=== PATIENT | female | born 1970 | race Two or more races ===

== ENCOUNTER 2024-01-05 08:53 | Emergency (ER) | payer BC, OTHER ==
[~2024-01-05] VITALS: Ht 165.1 cm; Wt 76.3 kg
[2024-01-05 09:12] VITALS: BP 155/100; PULSE 81; RESP 16; O2SAT 99
[2024-01-05] MEDS: HYDROcodone-ACET 10/325MG TAB PO ONE (09:22)
[2024-01-05] MEDS: NEOMYCIN-BACITRACIN-POLYM UNITDOSE PKG TOP OINT TOP ONE (09:23)
[2024-01-05] MEDS: DESITIN (ZINC OXIDE 40%) OINT 28G TUBE TOP ONE (09:24)
[2024-01-05] MEDS: ZINC SULFATE 220mg CAP or TAB PO ONE (09:30)
[2024-01-05] MEDS ORDERED: NAPR-746 PO (09:30)
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
[2024-01-05] MEDS ORDERED: CEPH500C PO (09:50)
== END 2024-01-05 09:48 | disposition home or self-care (01) ==
LOC: ER 08:53
DX: T23.262A Burn of second degree of back of left hand, initial encounter (principal); Z79.899 Other long term (current) drug therapy; X08.8XXA Exposure to other specified smoke, fire and flames, initial encounter; Y93.89 Activity, other specified; Y92.89 Other specified places as the place of occurrence of the external cause; Y99.8 Other external cause status
CPT/HCPCS: 16020

== ENCOUNTER 2024-12-21 09:38 | Inpatient (IN) | payer BC ==
[~2024-12-21] VITALS: Ht 165.1 cm; Wt 74.5 kg
[~2024-12-21 09:38] MED LIST: CEPH500C PO; NAPR-746 PO
[2024-12-21] MEDS: LIDOCAINE 1% HCL (LOCAL ANESTH.) INJ 20ML MDV IJ ONE (10:35)
[2024-12-21 11:20] LABS: Hematocrit 42.5 % (36.0-46.0); Hemoglobin 14.4 g/dL (12.2-16.2); Mean Corpuscular Hemoglobin 29.7 pg (28.0-32.0); Mean Corpuscular Volume 87.5 fL (80.0-100.0); Nucleated Red Blood Cells % 0.1 %
[2024-12-21 11:30] LABS: Chloride 104 mmol/L (98-107); Potassium 3.9 mmol/L (3.5-5.1); Sodium 140 mmol/L (136-145)
[2024-12-21 11:31] LABS: Anion Gap 12 (5-15); Carbon Dioxide 24 mmol/L (20-31)
[2024-12-21 11:32] LABS: Calcium 9.5 mg/dL (8.7-10.4)
[2024-12-21 11:36] LABS: BUN/Creatinine Ratio 7.4 (10.0-20.0)
[2024-12-21 11:42] LABS: Blood Urea Nitrogen 5 mg/dL (9-23); Glucose 384 mg/dL (74-106)
[2024-12-21] MEDS: InsuLIN REG 1unit/0.01ml Soln (100units/ml) IV ONE (13:09)
[2024-12-21] MEDS: KETOROLAC TROMETH 30 MG/ML 1ML VIAL IM ONE (13:36)
[2024-12-21] MEDS: SODIUM CHLORIDE 0.9% 1,000 ML IV ONE (13:41)
[2024-12-21] MEDS: CLINDAMYCIN 900MG IV 50 ML IV ONE (13:56)
[2024-12-21] MEDS ORDERED: DEXTROSE (50%) 50ML SYRG IV PRN (15:30)
[2024-12-21] MEDS ORDERED: ONDANSETRON HCL 4 MG/2 ML VIAL IV PRN (15:30)
[2024-12-21 16:45] VITALS: PULSE 93; RESP 18; O2SAT 96
[2024-12-21 17:00] VITALS: BP 137/82; PULSE 93; RESP 18; TEMP 98.4; O2SAT 96
[2024-12-21] MEDS ORDERED: SEMA4INJ SC (17:07)
[2024-12-21] MEDS ORDERED: INSLISPI SC (17:07)
[2024-12-21] MEDS ORDERED: METF-370 PO (17:07)
[2024-12-21] MEDS ORDERED: GLIP5TAB21 PO (17:07)
[2024-12-21] MEDS ORDERED: INSLANTI SC (17:07)
[2024-12-21 17:08] VITALS: BP 137/62; PULSE 94; RESP 16; TEMP 98.4; O2SAT 98
--- NOTE | 2024-12-21 17:29 | ECG ---
[facility] Test Date: 2024-12-21 Test Time: 09:47:48 Pat Name: LOGAN ANNE Department: Room: 0240 B Gender: F Research Quality Assurance Analyst: DEANN : 1970 Requested By: EMERGENCY EMERGENCY Order Number: [id number] Reading MD: Jayden Neely Measurements Intervals [place] Rate: 109 P: 62 MS: 160 QRS: -17 QRSD: 95 T: 46 QT: 350 QTc: 472 Interpretive Statements Sinus tachycardia Ventricular premature complex Aberrant complex Probable left atrial enlargement Borderline left axis deviation Low voltage, extremity leads Baseline wander in lead(s) II,aVR Electronically Signed On 12-26-2024 13:26:35 PST by Jayden Neely Please click the below link to view image of tracing.
[2024-12-21] MEDS: ACCU-CHEK COMFORT CURVE STRIP VI SCH (17:30)
[2024-12-21] MEDS: MORPHINE SULFATE INJ 2 MG/ml SYRG IV PRN (17:31)
[2024-12-21] MEDS: InsuLIN REG 1unit/0.01ml Soln (100units/ml) SC SCH (17:35)
[2024-12-21 20:00] VITALS: PULSE 94; RESP 18; O2SAT 98
[2024-12-21 20:56] VITALS: BP 127/71; PULSE 94; RESP 18; TEMP 98.8; O2SAT 98
[2024-12-21] MEDS: HYDROcodone-ACET 5/325MG TAB PO PRN (22:19)
[2024-12-21] MEDS: CLINDAMYCIN 600MG IV 50 ML IV SCH (22:19)
[2024-12-22] VITALS (7 sets, daily range): BP systolic 117–159; BP diastolic 72–83; PULSE 71–98; RESP 16–98; TEMP 98.4–99.5; O2SAT 96–100
[2024-12-22 05:59] LABS: Hematocrit 36.2 % (36.0-46.0); Hemoglobin 12.5 g/dL (12.2-16.2); Mean Corpuscular Hemoglobin 30.1 pg (28.0-32.0); Mean Corpuscular Volume 87.6 fL (80.0-100.0); Nucleated Red Blood Cells % 0.0 %
[2024-12-22 06:21] LABS: Alanine Aminotransferase 21 U/L (7-40); Albumin 4.0 g/dL (3.2-4.8); Anion Gap 9 (5-15); Bilirubin, Total 0.5 mg/dL (0.2-1.0); Calcium 8.7 mg/dL (8.7-10.4); Carbon Dioxide 24 mmol/L (20-31); Chloride 105 mmol/L (98-107); Potassium 3.5 mmol/L (3.5-5.1); Sodium 138 mmol/L (136-145); Total Protein 6.5 g/dL (5.7-8.2)
[2024-12-22 06:25] LABS: Alkaline Phosphatase 116 U/L (46-116); BUN/Creatinine Ratio 10.9 (10.0-20.0); Blood Urea Nitrogen < 5 mg/dL (9-23); Glucose 232 mg/dL (74-106)
[2024-12-22] MEDS: ACETAMINOPHEN 325 MG TAB PO PRN (09:35)
--- NOTE | 2024-12-22 11:07 | ED.PDOC ---
History of Present Illness(SKN HPI Comments A 54 YEAR OLD FEMALE PRESENTS TO THE ED WITH COMPLAINT OF LUMP OF RIGHT VAGINAL LABIA. PATIENT STATES SHE HAS BEEN A PAINFUL LUMP ON HER RIGHT VAGINAL LABIA FOR THE PAST 6 DAYS WITH WORSENING PAIN AND SWELLING THAT STARTED YESTERDAY. PATIENT NOTES SHE WAS SENT TO THIS ED BY URGENT CARE DUE TO HER BLOOD SUGAR BEING IN THE 400S. PATIENT DENIES FEVER, CHILLS, SHORTNESS OF BREATH, CHEST PAIN, ABDOMINAL PAIN, NAUSEA, VOMITING, HEADACHE, OR OTHER COMPLAINTS. NO OTHER SYMPTOMS OR MODIFYING FACTORS AT THIS TIME. PATIENT IS ALERT, ORIENTED X 4, AND HAS STEADY GAIT. Chief Complaint: Abscess Time Seen by MD: 09:47 History of Present Illness: Nurses Notes, Medications, Allergies Allergies: Coded Allergies: NO KNOWN ALLERGIES (Unverified , 01/05/24) Home Meds Active Scripts Cephalexin Monohydrate (Cephalexin) 500 Mg Cap, 1 CAP PO QID for 7 Days, #28 CAP 0 Refills Prov:REX PECK NP 01/05/24 Naproxen (Naproxen) 500 Mg Tab, 500 MG PO BIDPC for 14 Days, #28 TAB 0 Refills Prov:REX PECK PEDIATRIC DERMATOLOGIST 01/05/24 Information Source: Patient Mode of Arrival: Ambulatory Severity: Moderate Timing: Days Duration: Since onset, Days Prehospital treatment: None Location: Other (RIGHT VAGINAL LABIA) Mechanism: Spontaneous Onset Occurence: Indoors Object: None Condition of Object: None Retained Foreign Body: No Wound Type: Abscess Immunization Status of Animal: NA Tetanus: Unknown History of: Diabetes Associated Signs and Symptoms: Redness, Swelling, Pain Past Medical History PAST MEDICAL HISTORY: DM, High Lipids Surgical History: Denies all surgeries FLAT BREAKDOWN PROCESSOR History: No Pertinent FLAT BREAKDOWN PROCESSOR History Family History Family History: Reviewed,noncontributory to illness Social History Smoker: Non-Smoker Alcohol: Denies ETOH Use Drugs: Denies Drug Use Lives In: Home Constitutional: reports: others (ANXIOUS ); denies: chills, diaphoresis, fatigue, fever, malaise, sweats, weakness EENTM: denies: blurred vision, double vision, ear bleeding, ear discharge, ear drainage, ear pain, ear ringing, eye pain, eye redness, hearing loss, mouth pain, mouth swelling, nasal discharge, nose bleeding, nose congestion, nose pain, photophobia, tearing, throat pain, throat swelling, voice changes, others Respiratory: denies: cough, hemoptysis, orthopnea, SOB at rest, shortness of breath, SOB with excertion, stridor, wheezing, others Cardiovascular: denies: chest pain, dizzy spells, diaphoresis, Dyspnea on exertion, edema, irregular heart beat, left arm pain, lightheadedness, palpitations, PND, syncope, others Gastrointestinal: denies: abdomen distended, abdominal pain, blood streaked bowels, constipated, diarrhea, dysphagia, difficulty swallowing, hematemesis, melena, nausea, poor appetite, poor fluid intake, rectal bleeding, rectal pain, vomiting, others Genitourinary: denies: abnormal vagina bleeding, burning, dyspareunia, dysuria, flank pain, frequency, hematuria, incontinence, pain, , vagina discharge, urgency, others Neurological: denies: dizziness, fainting, headache, left sided numbness, left sided weakness, numbness, paresthesia, pre-existing deficit, right sided numbness, right sided weakness, seizure, speech problems, tingling, tremors, weakness, others Musculoskeletal: denies: back pain, gout, joint pain, joint swelling, muscle pain, muscle stiffness, neck pain, others Integumetry: reports: lumps (LUMP OF RIGHT VAGINAL LABIA), wounds; denies: bruises, change in color, change in hair/nails, dryness, laceration, lesions, rash, others Allergic/Immunocompromised: denies: Difficulty Healing, Frequent Infections, Hives, Itching, others Hematologic/Lymphatic: denies: anemia, blood clots, easy bleeding, easy bruisin g, swollen glands, others Endocrine: denies: excessive hunger, excessive sweating, excessive thirst, excessive urination, flushing, intolerance to cold, intolerance to heat, unexplained weight gain, unexplained weight loss, others Psychiatric: denies: anxiety, bipolar disorder, depression, hopeless, panic disorder, schizophrenia, sleepless, suicidal, others All Other Systems: Reviewed and Negative Physical Exam General Appearance: No Apparent Distress, Normal HEENT: Normal ENT Inspection, PERRL/EOMI, Pharynx Normal, TMs Normal Neck: Full Range of Motion, Non-Tender, Normal, Normal Inspection Respiratory: Chest Non-Tender, Lungs Clear, No Accessory Muscle Use, No Respiratory Distress, Normal Breath Sounds Cardiovascular: No Edema, No JVD, No Murmur, No Gallop, Normal Peripheral Pulses, Regular Rate/Rhythm Breast Exam: Deferred Gastrointestinal: No Organomegaly, Non Tender, No Pulsatile Mass, Normal Bowel Sounds, Soft Genitalia: Other (A RED BUMP WITH REDNESS AND SWELLING ON RIGHT VAGINAL MAJOR LABIA, +ABSCESS. ) Pelvic: Normal External Exam Rectal: Deferred Extremities: No calf tenderness, Normal capillary refill, Normal inspection, Normal range of motion, Non-tender, No pedal edema Musculoskeletal : Apperance: Normal Neurologic: Alert, funeral arrangement director II-XII nml as Tested, No Motor Deficits, Normal Affect, Normal Mood, No Sensory Deficits Cerebellar Function: Normal Reflexes: Normal Skin: Dry, Normal Color, Warm, Wounds (A BUMP WITH LOCALIZED ERYTHEMA, SWELLING AND FLUCTUANCE ON RIGHT VAGINAMAJOR LABIA, MILD PUS DRAINAGE. ) Peripheral Pulses: 2+ carotid (R), 2+ carotid (L) Lymphatic: No Adenopathy Was a procedure done? Was a procedure done?: Yes Sedation Sedation?: No Incision and Drainage Incision and Drainage: Abscess Location RIGHT VAGINAL LABIA Anesthetic: Lidocaine Preparation: Betadine, Saline Incision and Wound: Pus, Blood, Amount, Irrigated, Packed Informed consent obtained: No Risks/benefits/alt described: Yes Differential Diagnosis (INTG) Differential Diagnosis: N/A Differential Diagnosis: Abscess, Cellulitis, N/A Differential Diagnosis: N/A Abscess: Abscess, Cellulitis, Erysipelas Differential Diagnosis: N/A X-Ray, Labs, Meds, VS Vital Signs Date Time Temp Pulse Resp B/P (MAP) Pulse Ox O2 Delivery O2 Flow Rate FiO2 12/21/24 12:57 98.7 118 19 192/94 (126) 100 98.7 12/21/24 12:57 118 19 100 Room Air 12/21/24 09:47 109 12/21/24 09:40 97.0 122 16 136/85 98 97.0 Lab Test 12/21/24 12:56 12/21/24 10:36 Range/Units POC Glucose 319 H 70-106 mg/dl White Blood Count 9.0 4.4-10.8 10^3/uL Red Blood Count 4.86 4.0-5.20 10^6/uL Hemoglobin 14.4 12.2-16.2 g/dL Hematocrit 42.5 36.0-46.0 % Mean Corpuscular Volume 87.5 80.0-100.0 fL Mean Corpuscular Hemoglobin 29.7 28.0-32.0 pg Mean Corpuscular Hemoglobin Concent 33.9 32.0-36.0 g/dL Red Cell Distribution Width 12.6 11.8-14.3 % Platelet Count 251 140-450 10^3/uL Mean Platelet Volume 7.8 6.9-10.8 fL Neutrophils (%) (Auto) 82.7 H 37.0-80.0 % Lymphocytes (%) (Auto) 9.9 L 10.0-50.0 % Monocytes (%) (Auto) 5.4 0.0-12.0 % Eosinophils (%) (Auto) 1.6 0.0-7.0 % Basophils (%) (Auto) 0.4 0.0-2.0 % Neutrophils # (Auto) 7.4 1.6-8.6 10 ^3/uL Lymphocytes # (Auto) 0.9 0.4-5.4 10 ^3/uL Monocytes # (Auto) 0.5 0-1.3 10 ^3/uL Eosinophils # (Auto) 0.1 0-0.8 10 ^3/uL Basophils # (Auto) 0 0-0.2 10 ^3/uL Nucleated Red Blood Cells 0.1 % Sodium Level 140 136-145 mmol/L Potassium Level 3.9 3.5-5.1 mmol/L Chloride Level 104 98-107 mmol/L Carbon Dioxide Level 24 20-31 mmol/L Anion Gap 12 5-15 Blood Urea Nitrogen 5 L 9-23 mg/dL Creatinine 0.68 0.550-1.02 mg/dL Glomerular Filtration Rate Calc 102 >90 mL/min BUN/Creatinine Ratio 7.4 L 10.0-20.0 Serum Glucose 384 H 74-106 mg/dL Lactic Acid Level 1.2 0.4-2.0 mmol/L Calcium Level 9.5 8.7-10.4 mg/dL Current Medications Medications (Trade) Dose Ordered Sig/Balwinder Route Start Time Stop Time Status Last Admin Ceftriaxone Sodium 50 ml @ 100 mls/hr ONCE ONCE IV 12/21/24 10:30 12/21/24 10:59 DC 12/21/24 12:58 Clindamycin Phosphate 50 ml @ 50 mls/hr ONCE ONCE IV 12/21/24 10:30 12/21/24 11:29 DC 12/21/24 13:56 Sodium Chloride 1,000 ml @ 1,000 mls/hr Q1H ONCE IV 12/21/24 10:30 12/21/24 11:29 DC 12/21/24 13:41 Insulin Human Regular (InsuLIN R) 8 units ONCE ONCE IV 12/21/24 12:00 12/21/24 12:01 DC 12/21/24 13:09 Ketorolac Tromethamine (Toradol Injection) 30 mg ONCE ONCE IM 12/21/24 13:45 12/21/24 13:46 DC 12/21/24 13:36 X-Ray, Labs, Meds, VS Comment EXTERNAL MEDICAL RECORDS REVIEWED: [NONE] INDEPENDENT HISTORIANS: [NONE] SOCIAL DETERMINANTS OF HEALTH: [NONE] LABS ORDERED: CBC, BMP,, LACTIC ACID W/REFLEX, BLOOD CULTURE, WOUND CULTURE REVIEWED AND INTERPRETED RESULTS: IMAGING ORDERED: NONE TREATMENTS ORDERED: NS 1 L IV, CLINDAMYCIN 900 MG IV, ROCEPHIN 1 G IV AND TORADOL 30MG IVP PROCEDURES PERFORMED: INCISION AND DRAINAGE, SEE PROCEDURE SECTION. CRITICAL CARE TIME: NONE I HAVE DISCUSSED THE PATIENT WITH THE ATTENDING PHYSICIAN DR. GARCIA AND HE AGREES WITH THE PATIENT'S PLAN OF CARE. UPON MY PHYSICAL EXAMINATION, THE PATIENT HAD AN ABSCESS OF HER RIGHT VAGINAL LABIA. AN INCISION AND DRAINAGE WAS PERFORMED, HOWEVER DUE TO THE SEVERITY OF THE INFECTION AND THE FACT THAT THE PATIENT'S BLOOD SUGAR IS HIGH, I HAVE DETERMINED THE PATIENT NEEDS TO BE ADMITTED FOR FURTHER TREATMENT AND EVALUA TION. THE ON-CALL HOSPITALIST WILL BE CONTACTED FOR ADMISSION OF THIS PATIENT. Time of 1ST Reevaluation: 14:00 Reevaluation 1ST: Unchanged Patient Education/Counseling: Diagnosis, Treatment Family Education/Counseling: Diagnosis, Treatment SEPSIS Sepsis Screen Date sepsis recognized/suspect: Dec 21, 2024 Time Sepsis recognized/suspect: 941 Recent Procedure: No On Antibiotic Therapy: No Respiratory Rate >20: No Heart Rate >90: No Temp<36 C (96.8 F) or >38.3 C: No SBP <90 or MAP <65 mmHG: No New Acute Mental Status Change: No Is the patient on CPAP, BIPAP,: No Physician Orders Electrocardigram (12/21/24 09:43) Wound Culture W/ Gs (12/21/24 10:26) Blood Culture (12/21/24 10:26) 4X4 (12/21/24 10:26) Disposable Chux (12/21/24 10:26) Lac Tray (12/21/24 10:26) Heplock Iv (12/21/24 ) Consistent Carb(Ccho)Diabetes (12/21/24 Lunch) Vital Signs Date Time Temp Pulse Resp B/P (MAP) Pulse Ox O2 Delivery O2 Flow Rate FiO2 12/21/24 12:57 98.7 118 19 192/94 (126) 100 98.7 12/21/24 12:57 118 19 100 Room Air 12/21/24 09:47 109 12/21/24 09:40 97.0 122 16 136/85 98 97.0 Laboratory Tests Test 12/21/24 10:36 Lactic Acid Level 1.2 mmol/L (0.4-2.0) White Blood Count 9.0 10^3/uL (4.4-10.8) Medications Medications Dose Ordered Sig/Balwinder Route Start Time Stop Time Status Last Admin Dose Admin Ceftriaxone Sodium 50 ml @ 100 mls/hr ONCE ONCE IV 12/21/24 10:30 12/21/24 10:59 DC 12/21/24 12:58 Clindamycin Phosphate 50 ml @ 50 mls/hr ONCE ONCE IV 12/21/24 10:30 12/21/24 11:29 DC 12/21/24 13:56 Insulin Human Regular 8 units ONCE ONCE IV 12/21/24 12:00 12/21/24 12:01 DC 12/21/24 13:09 Ketorolac Tromethamine 30 mg ONCE ONCE IM 12/21/24 13:45 12/21/24 13:46 DC 12/21/24 13:36 Sodium Chloride 1,000 ml @ 1,000 mls/hr Q1H ONCE IV 12/21/24 10:30 12/21/24 11:29 DC 12/21/24 13:41 Departure 1 Departure Time of Disposition: 14:00 Impression: Primary Impression: Abscess of right genital labia Additional Impression: Uncontrolled diabetes mellitus Qualified Codes: E11.65 - Type 2 diabetes mellitus with hyperglycemia Disposition: ADMITTED INPATIENT Condition: Serious Critical Care Note Critical Care Time?: No Stability Stability form required: Yes Unstable for transfer: Requires medication, ED Physician Assesment, Possible rapid decline I personally scribed for SANJIV VAZQUEZ ([email or web address]) on 12/21/24 at 10:31. Electronically submitted by Naveen Fishman ([email or web address]). I personally scribed for SANJIV VAZQUEZ ([email or web address]) on 12/21/24 at 11:01. Electronically submitted by Naveen Fishman ([email or web address]). SANJIV VAZQUEZ Dec 21, 2024 10:31
--- NOTE | 2024-12-22 11:17 | DVHHP2 ---
History of Present Illness Reason for Visit: Abscess History of Present Illness Jaylin Santos is a 54-year-old female with past medical history of diabetes and hyperlipidemia who presents to the ED with pain in her right-sided labia since Wednesday. Patient reports that initially started out marble-sized and has grown in size including redness with pain. Patient reports that the pain is 10/10 burning and constant. She reports that any type of movement aggravates it makes the pain worse. She reports that the last time she had it was a year and a half ago and went away. Reports that she gets them from time to time. Patient reports that there was pus draining out of it. Patient denies any recent trauma or injury, recent sick contacts, recent travels, recent ingestion of spoiled food, chest pain, shortness of breath, fever, chills, lightheadedness, weakness, dizziness, abdominal pain, nausea, vomiting, diarrhea, urinary symptoms. Cardiovascular: hyperipidemia Endocrine: Diabetes Domestic Violence: Neg Review of Systems Skin: Lesions Allergies: Coded Allergies: NO KNOWN ALLERGIES (Unverified , 01/05/24) Exam Vital Signs Vital Signs Date Time Temp Pulse Resp B/P (MAP) Pulse Ox O2 Delivery O2 Flow Rate FiO2 12/21/24 12:57 98.7 118 19 192/94 (126) 100 98.7 12/21/24 12:57 Room Air General Appearance: Alert, Oriented X3, Cooperative, No acute distress HEENT: Atraumatic, PERRLA, EOMI, Mucous membr. moist/pink Respiratory: Normal air movement Cardiovascular: Normal S1, Normal S2 Abdominal: Soft Extremities: No clubbing, No cyanosis, Normal pulses, No tenderness/swelling Neuro: Normal speech, Strength at 5/5 X4 ext, Normal tone, Sensation intact Psych/Mental Status: Mental status NL, Mood NL Labs/Xrays Labs Test 12/21/24 12:56 12/21/24 10:36 Range/Units POC Glucose 319 H 70-106 mg/dl White Blood Count 9.0 4.4-10.8 10^3/uL Red Blood Count 4.86 4.0-5.20 10^6/uL Hemoglobin 14.4 12.2-16.2 g/dL Hematocrit 42.5 36.0-46.0 % Mean Corpuscular Volume 87.5 80.0-100.0 fL Mean Corpuscular Hemoglobin 29.7 28.0-32.0 pg Mean Corpuscular Hemoglobin Concent 33.9 32.0-36.0 g/dL Red Cell Distribution Width 12.6 11.8-14.3 % Platelet Count 251 140-450 10^3/uL Mean Platelet Volume 7.8 6.9-10.8 fL Neutrophils (%) (Auto) 82.7 H 37.0-80.0 % Lymphocytes (%) (Auto) 9.9 L 10.0-50.0 % Monocytes (%) (Auto) 5.4 0.0-12.0 % Eosinophils (%) (Auto) 1.6 0.0-7.0 % Basophils (%) (Auto) 0.4 0.0-2.0 % Neutrophils # (Auto) 7.4 1.6-8.6 10 ^3/uL Lymphocytes # (Auto) 0.9 0.4-5.4 10 ^3/uL Monocytes # (Auto) 0.5 0-1.3 10 ^3/uL Eosinophils # (Auto) 0.1 0-0.8 10 ^3/uL Basophils # (Auto) 0 0-0.2 10 ^3/uL Nucleated Red Blood Cells 0.1 % Sodium Level 140 136-145 mmol/L Potassium Level 3.9 3.5-5.1 mmol/L Chloride Level 104 98-107 mmol/L Carbon Dioxide Level 24 20-31 mmol/L Anion Gap 12 5-15 Blood Urea Nitrogen 5 L 9-23 mg/dL Creatinine 0.68 0.550-1.02 mg/dL Glomerular Filtration Rate Calc 102 >90 mL/min BUN/Creatinine Ratio 7.4 L 10.0-20.0 Serum Glucose 384 H 74-106 mg/dL Lactic Acid Level 1.2 0.4-2.0 mmol/L Calcium Level 9.5 8.7-10.4 mg/dL SEPSIS Sepsis Screen Date sepsis recognized/suspect: Dec 21, 2024 Time Sepsis recognized/suspect: 09 Recent Procedure: No On Antibiotic Therapy: No Respiratory Rate >20: No Heart Rate >90: No Temp<36 C (96.8 F) or >38.3 C: No SBP <90 or MAP <65 mmHG: No New Acute Mental Status Change: No Is the patient on CPAP, BIPAP,: No Physician Orders Electrocardigram (12/21/24 09:43) Wound Culture W/ Gs (12/21/24 10:26) Blood Culture (12/21/24 10:26) 4X4 (12/21/24 10:26) Disposable Chux (12/21/24 10:26) Lac Tray (12/21/24 10:26) Heplock Iv (12/21/24 ) Consistent Carb(Ccho)Diabetes (12/21/24 Lunch) Vital Signs Date Time Temp Pulse Resp B/P (MAP) Pulse Ox O2 Delivery O2 Flow Rate FiO2 12/21/24 12:57 98.7 118 19 192/94 (126) 100 98.7 12/21/24 12:57 118 19 100 Room Air 12/21/24 09:47 109 12/21/24 09:40 97.0 122 16 136/85 98 97.0 Laboratory Tests Test 12/21/24 10:36 Lactic Acid Level 1.2 mmol/L (0.4-2.0) White Blood Count 9.0 10^3/uL (4.4-10.8) Medications Medications Dose Ordered Sig/Balwinder Route Start Time Stop Time Status Last Admin Dose Admin Ceftriaxone Sodium 50 ml @ 100 mls/hr ONCE ONCE IV 12/21/24 10:30 12/21/24 10:59 DC 12/21/24 12:58 100 MLS/HR Clindamycin Phosphate 50 ml @ 50 mls/hr ONCE ONCE IV 12/21/24 10:30 12/21/24 11:29 DC 12/21/24 13:56 50 MLS/HR Insulin Human Regular 8 units ONCE ONCE IV 12/21/24 12:00 12/21/24 12:01 DC 12/21/24 13:09 8 UNITS Ketorolac Tromethamine 30 mg ONCE ONCE IM 12/21/24 13:45 12/21/24 13:46 DC 12/21/24 13:36 30 MG Sodium Chloride 1,000 ml @ 1,000 mls/hr Q1H ONCE IV 12/21/24 10:30 12/21/24 11:29 DC 12/21/24 13:41 1,000 MLS/HR Assessment/Plan Assessment/Plan Assessment Abscess of right genital labia Uncontrolled diabetes History of hyperlipidemia Plan Admit to [facility] Hemoglobin A1c ISS and Accu-Cheks Wound culture with Gram stain IV antibiotics-ceftriaxone +clindamycin Antiemetics Pain management Diet Home medications reconciled DVT prophylaxis-SCDs PUD prophylaxis-PPIs Discussed plan of care with patient and nurse [id number] Preventive counseling healthy eating habits, physical activity, and regular checkups Plan discussed with: Patient Date of Service: Dec 21, 2024 Billing Provider: STACEY MESSER Common Visit Codes: [id number] INP/OBS CARE (HIGH) Secondary Visit Codes: [id number] COUNSELING IND STACEY MESSER Dec 21, 2024 15:31
[2024-12-22] MEDS: SODIUM CHLORIDE 0.9% 500 ML IV ONE (21:28)
[2024-12-23 01:00] VITALS: BP 110/64; PULSE 79; RESP 17; TEMP 97.4; O2SAT 97
[2024-12-23 05:00] VITALS: BP 136/78; PULSE 88; RESP 17; TEMP 97.8; O2SAT 98
[2024-12-23 09:00] VITALS: BP 120/79; PULSE 84; RESP 17; TEMP 97.9; O2SAT 94
[2024-12-23 13:00] VITALS: BP 117/81; PULSE 79; RESP 17; TEMP 97.8; O2SAT 94
[2024-12-23 16:28] LABS: Urine Budding Yeast OCCASIONAL /hpf (None Seen); Urine Protein, UAD Negative (Negative)
[2024-12-23 16:46] VITALS: BP 122/80; PULSE 82; RESP 18; TEMP 98.7; O2SAT 96
[2024-12-23 21:17] VITALS: BP 119/73; PULSE 97; RESP 18; TEMP 98.1; O2SAT 98
[2024-12-24 00:47] VITALS: BP 128/85; PULSE 78; RESP 18; TEMP 98.1; O2SAT 96
[2024-12-24 05:04] VITALS: BP 123/78; PULSE 76; RESP 18; TEMP 98.5; O2SAT 94
[2024-12-24 08:39] VITALS: BP 101/62; PULSE 67; RESP 16; TEMP 98; O2SAT 97
[2024-12-24 12:36] VITALS: BP 119/77; PULSE 80; RESP 15; TEMP 97.6; O2SAT 95
[2024-12-24 16:37] VITALS: BP 110/71; PULSE 79; RESP 16; TEMP 97.6; O2SAT 97
--- NOTE | 2024-12-24 20:52 | DVHPN2 ---
Reviewed: Care Plan, H&P Changes from previous H/P or p: No Changes General: Per HPI Skin: Lesions Objective Vitals Vital Signs Date Time Temp Pulse Resp B/P (MAP) Pulse Ox O2 Delivery O2 Flow Rate FiO2 12/24/24 16:37 97.6 79 16 110/71 (84) 97 97.6 12/24/24 08:00 Room Air* 0 21 Intake/Output Intake and Output 12/24/24 07:00 Intake Total 1900 ml Balance 1900 ml Intake Oral 1650 ml IV Total 250 ml # Voids 7 # Bowel Movements 1 General Appearance: Alert, Oriented X3 Cardiovascular: Regular rate, Normal S1, Normal S2 Medications Current Medications Medications Dose Ordered Sig/Balwinder Route Start Time Stop Time Status Last Admin Dose Admin Diagnostic Test (Pha) 1 strip ACHS 12/21/24 17:00 12/24/24 17:00 1 STRIP Insulin Human Regular ACHS SC 12/21/24 17:00 12/24/24 18:39 8 UNITS Dextrose 50 ml UD PRN IV 12/21/24 15:30 Acetaminophen/ Hydrocodone Bitart 1 tab Q4HP PRN PO 12/21/24 15:30 12/24/24 17:24 1 TAB Ondansetron HCl 4 mg Q4HP PRN IV 12/21/24 15:30 Acetaminophen 650 mg Q6HP PRN PO 12/21/24 15:30 12/22/24 09:35 650 MG Morphine Sulfate 2 mg Q4HPRN PRN IV 12/21/24 15:30 12/24/24 04:39 2 MG Clindamycin Phosphate 50 ml @ 50 mls/hr Q8HR IV 12/21/24 22:00 12/24/24 13:18 50 MLS/HR Ceftriaxone Sodium 50 ml @ 100 mls/hr DAILY@09 IV 12/22/24 09:00 12/24/24 10:47 100 MLS/HR Laboratory Results Laboratory Tests 12/22/24 04:38 Urinalysis Test 12/23/24 15:42 Urine Color Light-yellow (Yellow) Urine Clarity Clear (Clear) Urine pH 6.5 (5.0-9.0) Urine Specific [place] 1.015 (1.001-1.035) Urine Protein Negative (Negative) Urine Ketones Negative (Negative) Urine Blood Negative /uL (Negative) Urine Nitrite Negative (Negative) Urine Bilirubin Negative (Negative) Urine Urobilinogen Normal mg/dL (Negative) Urine Leukocyte Esterase Negative /uL (Negative) Urine RBC 1 /hpf (0 - 4) Urine Microscopic WBC 2 /HPF (0-5) Urine Squamous Epithelial Cells Few /hpf (<5) Urine Bacteria None seen /hpf (None Seen) Urine Yeast (Budding) Occasional /hpf (None Urine Glucose 4+ mg/dL (Normal) H Microbiology Microbiology Date/Time Source Procedure Growth Status 12/21/24 11:34 Vulva Gram Stain - Final Resulted 12/21/24 11:34 Vulva Wound Culture - Preliminary Resulted 12/21/24 10:41 Blood Blood Culture - Preliminary NO GROWTH AFTER 72 HOURS OF INCUBATION. Resulted Labs and/or images reviewed: Labs reviewed by me, Image(s) reviewed by me Assessment/Plan Assessment/Plan Jaylin Santos is a 54-year-old female with past medical history of diabetes and hyperlipidemia who presents to the ED with pain in her right-sided labia since Wednesday. Patient reports that initially started out marble-sized and has grown in size including redness with pain. Patient reports that the pain is 10/10 burning and constant. She reports that any type of movement aggravates it makes the pain worse. She reports that the last time she had it was a year and a half ago and went away. Reports that she gets them from time to time. Patient reports that there was pus draining out of it. Patient denies any recent trauma or injury, recent sick contacts, recent travels, recent ingestion of spoiled food, chest pain, shortness of breath, fever, chills, lightheadedness, weakness, dizziness, abdominal pain, nausea, vomiting, diarrhea, urinary symptoms. Abscess of right genital labia Uncontrolled diabetes History of hyperlipidemia continue with IV abx Plan discussed with: Patient Date of Service: Dec 23, 2024 Billing Provider: ROXANNE SHORE DO Common Visit Codes: [id number] INP/OBS CARE(HIGH) ROXANNE SHORE DO Dec 24, 2024 20:52
--- NOTE | 2024-12-24 20:53 | DVHPN2 ---
Reviewed: Care Plan, H&P Changes from previous H/P or p: No Changes General: Per HPI Skin: Lesions Objective Vitals Vital Signs Date Time Temp Pulse Resp B/P (MAP) Pulse Ox O2 Delivery O2 Flow Rate FiO2 12/24/24 16:37 97.6 79 16 110/71 (84) 97 97.6 12/24/24 08:00 Room Air* 0 21 Intake/Output Intake and Output 12/24/24 07:00 Intake Total 1900 ml Balance 1900 ml Intake Oral 1650 ml IV Total 250 ml # Voids 7 # Bowel Movements 1 General Appearance: Alert, Oriented X3 Cardiovascular: Regular rate, Normal S1, Normal S2 Medications Current Medications Medications Dose Ordered Sig/Balwinder Route Start Time Stop Time Status Last Admin Dose Admin Diagnostic Test (Pha) 1 strip ACHS 12/21/24 17:00 12/24/24 17:00 1 STRIP Insulin Human Regular ACHS SC 12/21/24 17:00 12/24/24 18:39 8 UNITS Dextrose 50 ml UD PRN IV 12/21/24 15:30 Acetaminophen/ Hydrocodone Bitart 1 tab Q4HP PRN PO 12/21/24 15:30 12/24/24 17:24 1 TAB Ondansetron HCl 4 mg Q4HP PRN IV 12/21/24 15:30 Acetaminophen 650 mg Q6HP PRN PO 12/21/24 15:30 12/22/24 09:35 650 MG Morphine Sulfate 2 mg Q4HPRN PRN IV 12/21/24 15:30 12/24/24 04:39 2 MG Clindamycin Phosphate 50 ml @ 50 mls/hr Q8HR IV 12/21/24 22:00 12/24/24 13:18 50 MLS/HR Ceftriaxone Sodium 50 ml @ 100 mls/hr DAILY@09 IV 12/22/24 09:00 12/24/24 10:47 100 MLS/HR Laboratory Results Laboratory Tests 12/22/24 04:38 Urinalysis Test 12/23/24 15:42 Urine Color Light-yellow (Yellow) Urine Clarity Clear (Clear) Urine pH 6.5 (5.0-9.0) Urine Specific [place] 1.015 (1.001-1.035) Urine Protein Negative (Negative) Urine Ketones Negative (Negative) Urine Blood Negative /uL (Negative) Urine Nitrite Negative (Negative) Urine Bilirubin Negative (Negative) Urine Urobilinogen Normal mg/dL (Negative) Urine Leukocyte Esterase Negative /uL (Negative) Urine RBC 1 /hpf (0 - 4) Urine Microscopic WBC 2 /HPF (0-5) Urine Squamous Epithelial Cells Few /hpf (<5) Urine Bacteria None seen /hpf (None Seen) Urine Yeast (Budding) Occasional /hpf (None Urine Glucose 4+ mg/dL (Normal) H Microbiology Microbiology Date/Time Source Procedure Growth Status 12/21/24 11:34 Vulva Gram Stain - Final Resulted 12/21/24 11:34 Vulva Wound Culture - Preliminary Resulted 12/21/24 10:41 Blood Blood Culture - Preliminary NO GROWTH AFTER 72 HOURS OF INCUBATION. Resulted Assessment/Plan Assessment/Plan Jaylin Santos is a 54-year-old female with past medical history of diabetes and hyperlipidemia who presents to the ED with pain in her right-sided labia since Wednesday. Patient reports that initially started out marble-sized and has grown in size including redness with pain. Patient reports that the pain is 10/10 burning and constant. She reports that any type of movement aggravates it makes the pain worse. She reports that the last time she had it was a year and a half ago and went away. Reports that she gets them from time to time. Patient reports that there was pus draining out of it. Patient denies any recent trauma or injury, recent sick contacts, recent travels, recent ingestion of spoiled food, chest pain, shortness of breath, fever, chills, lightheadedness, weakness, dizziness, abdominal pain, nausea, vomiting, diarrhea, urinary symptoms. Abscess of right genital labia Uncontrolled diabetes History of hyperlipidemia continue with IV abx Plan discussed with: Patient Date of Service: Dec 24, 2024 Billing Provider: ROXANNE SHORE DO Common Visit Codes: [id number] INP/OBS CARE(HIGH) ROXANNE SHORE DO Dec 24, 2024 20:53
[2024-12-24] MEDS ORDERED: LEVO500T91 PO (20:54)
[2024-12-24] MEDS ORDERED: CLIN1CAP70 PO (20:54)
[2024-12-24 21:00] VITALS: BP 116/75; PULSE 79; RESP 18; TEMP 98.2; O2SAT 97
[2024-12-25 01:08] VITALS: BP 173/90; PULSE 68; RESP 16; TEMP 98.9; O2SAT 94
[2024-12-25 04:41] VITALS: BP 115/70; PULSE 72; RESP 20; TEMP 98.2; O2SAT 98
[2024-12-25 08:47] VITALS: BP 130/80; PULSE 77; RESP 16; TEMP 97.5; O2SAT 100
[2024-12-25 10:15] VITALS: BP 130/80; PULSE 77; RESP 16; TEMP 97.5; O2SAT 100
== END 2024-12-25 11:27 | disposition home or self-care (01) | DRG 747 ==
LOC: ER 09:38 → OVERFLOW 15:18 → EEVIPCON 15:18 → EAST 15:31
PROVIDERS: ADMIT Internal Medicine; ATTEND Internal Medicine
PROC: 0U9MXZZ Drainage of Vulva, External Approach (ICD-10-PCS; principal; 2024-12-21)
DX: N76.4 Abscess of vulva (principal); E78.5 Hyperlipidemia, unspecified; E11.9 Type 2 diabetes mellitus without complications
CPT/HCPCS: 36415; 56405; 80048; 80053; 81001; 82962; 83036; 83605; 85025; 86141; 87040; 87077; 87081; 87186; 87205; 93005; 96365; 96367; 96372; 96375; G0378; J1815; J1885; J2003; J2405; J3490